=== PATIENT | male | born 1975 | race Two or more races ===

== ENCOUNTER 2019-08-13 20:58 | Emergency (ER) | payer SELFPAY ==
[~2019-08-13] VITALS: Ht 162.6 cm; Wt 74.8 kg
[2019-08-13 21:50] VITALS: BP 130/80
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
--- NOTE | 2019-08-13 22:06 | NUR ---
ED Nurse Note: Pt taken for Xray.
[2019-08-13] MEDS ORDERED: IBUPROFEN600 MG ORAL (22:13)
[2019-08-13] MEDS ORDERED: HYDROCODON-ACE1 EA15 ORAL (22:13)
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
--- NOTE | 2019-08-13 22:14 | NUR ---
ED Nurse Note: Pt taken for Xray.
[2019-08-13 22:24] VITALS: BP 130/80
--- NOTE | 2019-08-13 22:24 | NUR ---
ED Nurse Note: Pt cleared by ermd for discharge. DC instructions/prescription was given and explained to pt and verbalized understanding of teachings. All medical deviecs such as ID band removed. Pt is AAO x4, ambulatory and left with all personal belongings. Accompanied by son.
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
== END 2019-08-13 22:28 | disposition home or self-care (01) ==
LOC: EMR 22:00
DX: S39.012A Strain of muscle, fascia and tendon of lower back, initial encounter (principal); S80.02XA Contusion of left knee, initial encounter; V43.52XA Car driver injured in collision with other type car in traffic accident, initial encounter; Y92.410 Unspecified street and highway as the place of occurrence of the external cause
CPT/HCPCS: 72020; 99283